=== PATIENT | female | born 1995 | race Two or more races ===

== ENCOUNTER 2021-05-19 22:27 | Emergency (ER) | payer OTHER ==
[~2021-05-19] VITALS: Ht 172.7 cm; Wt 68.0 kg
[2021-05-19 23:28] VITALS: BP 123/78
[2021-05-20] MEDS ORDERED: KETOROLAC 30MG/ML VIAL IM NR (01:45)
[2021-05-20] MEDS ORDERED: MED4 MT (02:09)
== END 2021-05-20 02:20 | disposition home or self-care (01) ==
LOC: ER 22:27
DX: R07.81 Pleurodynia (principal); J30.9 Allergic rhinitis, unspecified; R05.9 Cough, unspecified; R09.82 Postnasal drip; J45.998 Other asthma; Z20.822 Contact with and (suspected) exposure to COVID-19
CPT/HCPCS: 71101; 96372; 99284; C9803; J1885; U0003; U0005

== ENCOUNTER 2021-11-05 01:18 | Emergency (ER) | payer OTHER ==
[~2021-11-05] VITALS: Ht 162.6 cm; Wt 64.0 kg
[~2021-11-05 01:18] MED LIST: MED4 MT
[2021-11-05 03:37] VITALS: BP 126/79
== END 2021-11-05 07:51 | disposition home or self-care (01) ==
LOC: ER 01:18
DX: T40.711A Poisoning by cannabis, accidental (unintentional), initial encounter (principal); Y92.89 Other specified places as the place of occurrence of the external cause; R11.2 Nausea with vomiting, unspecified
CPT/HCPCS: 99283